=== PATIENT | female | born 1940 | race African-American/Black ===

== ENCOUNTER 2017-10-25 12:01 | Emergency (ER) | payer BC | END 2017-10-25 14:29 | disposition home or self-care (01) | LOC: ER 14:29 | DX: T82.898A Other specified complication of vascular prosthetic devices, implants and grafts, initial encounter (principal); R60.0 Localized edema; I12.0 Hypertensive chronic kidney disease with stage 5 chronic kidney disease or end stage renal disease; E11.22 Type 2 diabetes mellitus with diabetic chronic kidney disease; N18.6 End stage renal disease; Z99.2 Dependence on renal dialysis; Z86.73 Personal history of transient ischemic attack (TIA), and cerebral infarction without residual deficits; Z91.041 Radiographic dye allergy status; Y84.1 Kidney dialysis as the cause of abnormal reaction of the patient, or of later complication, without mention of misadventure at the time of the procedure; Y92.89 Other specified places as the place of occurrence of the external cause | CPT/HCPCS: 93971; 99284-25 ==

== ENCOUNTER 2020-11-01 14:43 | Emergency (ER) | payer BC ==
[~2020-11-01] VITALS: Ht 165.1 cm; Wt 61.2 kg
[~2020-11-01 14:43] MED LIST: ACET325T9 PO; ALLO100T PO; AMLO-186 PO; AMLO-187 PO; APIX2.5T PO; APIX5TAB PO; ASPI-482 PO; ATOR20TA58 PO; BENZ1LOZ48 PO; CETI10TA16 PO; CIPR250T30 PO; COLC0.6T45 PO; FOLI0.8T3 PO; HYDR-2761 PO; INSU100C SQ; INSU100I13 SQ; INSU100I17 SQ; INSU100I27 SQ; LOSA-73 PO; MAGN100T6 PO; MAGN400C PO; MAGN400T22 PO; OMEP40CA7 PO; OXYC1TAB7 PO; PANT40TA77 PO; SIMV5TAB14 PO; SITA1TAB7 PO; SITA50TA PO; TIZA4TAB2 PO; TRAZ-118 PO; VALS1TAB23 PO; VALS1TAB33; VALS1TAB33 PO; [UNRECOGNIZED DRUG - REMARK]
--- NOTE | 2020-11-01 15:00 | ED.ADGEN ---
Past Medical History Past Medical History: CVA, Diabetes-Type II, Hypertension, Renal Failure, Stroke, Other Additional Past Medical Histor: CRI with Cr 1.6 (August 2014) Past Surgical History: Hysterectomy, Other Additional Past Surgical Histo: TOE, DIALYSIS SHUNT RIGHT CHEST, AND LEFT UPPER ARM. Smoking Status: Never Smoker Alcohol Use: None Drug Use: None General Adult EDM: Chief Complaint: NEAR SYNCOPE HPI: HPI: Patient is a 80-year-old female who arrives via EMS after experiencing a near syncopal episode after completing dialysis. Patient dialyzes every Friday, Friday and Friday and has had repetitive spells of feeling as if she might pass out at the conclusion of dialysis. Patient reports when she is at rest she has no symptoms. She denies any history of chest pain. Additionally there are not any changes in her blood pressure that accompany her. She further denies having missed any appointments or neurological change otherwise. She is awake, alert and nontoxic-appearing. Review of Systems: Review of Systems: Constitutional: Denies fever or chills. [] Eyes: Denies change in visual acuity. [] HENT: Denies nasal congestion or sore throat. [] Respiratory: Denies cough or shortness of breath. [] Cardiovascular: Denies chest pain or edema. [] GI: Denies abdominal pain, nausea, vomiting, bloody stools or diarrhea. [] : Denies dysuria. [] Musculoskeletal: Denies back pain or joint pain. [] Integument: Denies rash. [] Neurologic: Reports being lightheaded/near syncopal. Denies headache, focal weakness or sensory changes. [] Endocrine: Denies polyuria or polydipsia. [] Lymphatic: Denies swollen glands. [] Psychiatric: Denies depression or anxiety. [] Allergies: Allergies: Allergies Coded Allergies Type Severity Reaction Last Updated Verified iodine Allergy Intermediate FLUSHING 09/17/17 Yes Physical Exam: PE: Constitutional: Well developed, well nourished, no acute distress, non-toxic appearance. [] HENT: Normocephalic, atraumatic, bilateral external ears normal, oropharynx moist, no oral exudates, nose normal. [] Eyes: PERRLA, EOMI, conjunctiva normal, no discharge. [] Neck: Normal range of motion, no tenderness, supple, no stridor. [] Cardiovascular:Heart rate regular rhythm, no murmur [] Lungs & Thorax: Bilateral breath sounds clear to auscultation [] Abdomen: Bowel sounds normal, soft, no tenderness, no masses, no pulsatile masses. [] Skin: Warm, dry, no erythema, no rash. [] Back: No tenderness, no CVA tenderness. [] Extremities: No tenderness, no cyanosis, no clubbing, ROM intact, no edema. [] Neurologic: Alert and oriented X 3, normal motor function, normal sensory function, no focal deficits noted. [] Psychologic: Affect normal, judgement normal, mood normal. [] Current Patient Data: Labs: Laboratory Tests Test 11/01/20 15:14 White Blood Count 5.6 x10^3/uL (4.0-11.0) Red Blood Count 3.54 x10^6/uL (3.50-5.40) Hemoglobin 11.1 g/dL (12.0-15.5) L Hematocrit 32.8 % (36.0-47.0) L Mean Corpuscular Volume 93 fL (79-100) Mean Corpuscular Hemoglobin 31 pg (25-35) Mean Corpuscular Hemoglobin Concent 34 g/dL (31-37) Red Cell Distribution Width 13.9 % (11.5-14.5) Platelet Count 278 x10^3/uL (140-400) Neutrophils (%) (Auto) 66 % (31-73) Lymphocytes (%) (Auto) 22 % (24-48) L Monocytes (%) (Auto) 8 % (0-9) Eosinophils (%) (Auto) 3 % (0-3) Basophils (%) (Auto) 0 % (0-3) Neutrophils # (Auto) 3.7 x10^3/uL (1.8-7.7) Lymphocytes # (Auto) 1.2 x10^3/uL (1.0-4.8) Monocytes # (Auto) 0.5 x10^3/uL (0.0-1.1) Eosinophils # (Auto) 0.2 x10^3/uL (0.0-0.7) Basophils # (Auto) 0.0 x10^3/uL (0.0-0.2) Sodium Level 140 mmol/L (136-145) Potassium Level 3.9 mmol/L (3.5-5.1) Chloride Level 95 mmol/L (98-107) L Carbon Dioxide Level 37 mmol/L (21-32) H Anion Gap 8 (6-14) Blood Urea Nitrogen 13 mg/dL (7-20) Creatinine 4.2 mg/dL (0.6-1.0) H Estimated GFR (Cockcroft-Gault) 12.4 BUN/Creatinine Ratio 3 (6-20) L Glucose Level 157 mg/dL (70-99) H Calcium Level 8.9 mg/dL (8.5-10.1) Total Bilirubin 0.5 mg/dL (0.2-1.0) Aspartate Amino Transferase (AST) 19 U/L (15-37) Alanine Aminotransferase (ALT) 17 U/L (14-59) Alkaline Phosphatase 92 U/L (46-116) Troponin I Quantitative < 0.017 ng/mL (0.000-0.055) Total Protein 8.7 g/dL (6.4-8.2) H Albumin 4.2 g/dL (3.4-5.0) Albumin/Globulin Ratio 0.9 (1.0-1.7) L Laboratory Tests 11/01/20 15:14 Laboratory Tests 11/01/20 15:14 Vital Signs: Vital Signs Date Time Temp Pulse Resp B/P (MAP) Pulse Ox O2 Delivery O2 Flow Rate FiO2 11/01/20 14:43 98.4 67 14 138/65 (89) 96 Room Air 98.4 EKG: EKG: [] EKG was obtained at 1441 hrs. reveals a normal sinus rhythm with a ventricular rate of 66 bpm. There is left axis deviation present without acute ST/T wave changes to denote ischemia. Heart Score: C/O Chest Pain: No Risk Factors: Risk Factors: DM, Current or recent (<one month) smoker, HTN, HLP, family history of CAD, obesity. Risk Scores: Score 0 - 3: 2.5% MACE over next 6 weeks - Discharge Home Score 4 - 6: 20.3% MACE over next 6 weeks - Admit for Clinical Observation Score 7 - 10: 72.7% MACE over next 6 weeks - Early Invasive Strategies Radiology/Procedures: Radiology/Procedures: [] Impression: [facility] [address] [place] [address] IMAGING REPORT Signed PATIENT: CORTNEY WILLIAMSON ACCOUNT: [id number] : 1940 LOCATION: ER AGE: 80 SEX: F EXAM STATUS: PRE ER ORD. PHYSICIAN: MICHELL HENAO DO REASON: Near syncope PROCEDURE: PORTABLE CHEST 1V EXAM: XR CHEST 1V 11/01/2020 3:00 PM CLINICAL INDICATION: Near syncope COMPARISON: Chest radiograph 10/23/2020 TECHNIQUE: AP upright view of the chest FINDINGS: The heart and mediastinum are normal. Lungs are adequately expanded. A few linear opacities in the left lung base are likely atelectasis. No consolidation, pleural effusion, or pneumothorax. No acute osseous abnormality. There is degenerative joint disease of the acromioclavicular joints. An electronic device projects over the left chest wall. IMPRESSION: No acute cardiopulmonary abnormality. Electronically signed by: Ariana Moore MD (11/01/2020 3:14 PM) [id number] DICTATED and SIGNED BY: ARIANA MOORE MD DATE: 11/01/20 [id number] Course & Med Decision Making: Course & Med Decision Making Pertinent Labs and Imaging studies reviewed. (See chart for details) The patient remains awake, alert and in no acute distress. Patient reports that she is feeling fine now and would like to leave. Given that this is happened several times following dialysis I do believe the patient is safe for discharge. The patient has not had chest pain at any time. I have advised that she return with any chest pain or any new syncopal symptoms. I have also asked that she return with any change in the character of her lightheaded sensation. The patient understands and has agreed to do so. She is nontoxic-appearing and resting comfortably. She is stable for discharge. Dragon Disclaimer: Dragon Disclaimer: This electronic medical record was generated, in whole or in part, using a voice recognition dictation system. Departure Departure Impression: Primary Impression: Orthostatic syncope Additional Impression: ESRD on dialysis Disposition: HOME / SELF CARE / HOMELESS Condition: STABLE Referrals: PAWAN ANGULO MD (PCP) Patient Instructions: Dialysis, Care After, Near-Syncope, Orthostatic Hypotension Problem Qualifiers MICHELL HENAO DO Nov 01, 2020 15:00
--- NOTE | 2020-11-01 15:16 | RAD ---
EXAM: XR CHEST 1V 11/01/2020 3:00 PM CLINICAL INDICATION: Near syncope COMPARISON: Chest radiograph 10/23/2020 TECHNIQUE: AP upright view of the chest FINDINGS: The heart and mediastinum are normal. Lungs are adequately expanded. A few linear opacitie s in the left lung base are likely atelectasis. No consolidation, pleural effusion, or pneumothorax. No acute osseous abnormality. There is degenerative joint disease of the acromioclavicular joints. An electronic device projects over the left chest wall. IMPRESSION: No acute cardiopulmonary abnormality. Electronically signed by: Ariana Moore MD (11/01/2020 3:14 PM) [id number]
[2020-11-01 15:27] LABS: BASO % 0 % (0-3); EOS # 0.2 x10^3/uL (0.0-0.7); EOS % 3 % (0-3); HEMATOCRIT 32.8 % (36.0-47.0); HEMOGLOBIN 11.1 g/dL (12.0-15.5); LYMPH # 1.2 x10^3/uL (1.0-4.8); LYMPH % 22 % (24-48); MEAN CORPUSCULAR HEMOGLOBIN 31 pg (25-35); MEAN CORPUSCULAR HGB CONC 34 g/dL (31-37); MEAN CORPUSCULAR VOLUME 93 fL (79-100); MONO # 0.5 x10^3/uL (0.0-1.1); MONO % 8 % (0-9); NEUT # 3.7 x10^3/uL (1.8-7.7); NEUT % 66 % (31-73); PLATELET COUNT 278 x10^3/uL (140-400); RED BLOOD COUNT 3.54 x10^6/uL (3.50-5.40); RED CELL DISTRIBUTION WIDTH 13.9 % (11.5-14.5); WHITE BLOOD COUNT 5.6 x10^3/uL (4.0-11.0)
[2020-11-01 15:36] LABS: CALCIUM 8.9 mg/dL (8.5-10.1); CREATININE 4.2 mg/dL (0.6-1.0); GFR 12.4; POTASSIUM 3.9 mmol/L (3.5-5.1)
[2020-11-01 15:41] LABS: ALBUMIN 4.2 g/dL (3.4-5.0); ALBUMIN/GLOBULIN RATIO 0.9 (1.0-1.7); TOTAL BILIRUBIN 0.5 mg/dL (0.2-1.0); TOTAL PROTEIN 8.7 g/dL (6.4-8.2)
[2020-11-01 17:15] VITALS: BP 137/64
--- NOTE | 2020-11-01 18:09 | EKG ---
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
== END 2020-11-01 17:40 | disposition home or self-care (01) ==
LOC: ER 14:43
DX: R55 Syncope and collapse (principal); E11.22 Type 2 diabetes mellitus with diabetic chronic kidney disease; I12.0 Hypertensive chronic kidney disease with stage 5 chronic kidney disease or end stage renal disease; N18.6 End stage renal disease; Z99.2 Dependence on renal dialysis; Z86.73 Personal history of transient ischemic attack (TIA), and cerebral infarction without residual deficits; Z88.8 Allergy status to other drugs, medicaments and biological substances; Z90.710 Acquired absence of both cervix and uterus
CPT/HCPCS: 36415; 71045; 80053; 84484; 85025; 93005; 99285-25

== ENCOUNTER 2021-04-04 17:38 | Emergency (ER) | payer BC ==
[~2021-04-04] VITALS: Ht 165.1 cm; Wt 80.0 kg
[~2021-04-04 17:38] MED LIST changes: +TIZA-75 PO; -TIZA4TAB2 PO
[2021-04-04] MEDS ORDERED: METOCLOPRAMIDE HCL 10 MG/2 ML VIAL. IVP ONE (18:00)
--- NOTE | 2021-04-04 18:05 | PHYS DOC ---
Past Medical History Past Medical History: CVA, Diabetes-Type II, Hypertension, Renal Failure, Stroke, Other Additional Past Medical Histor: CRI with Cr 1.6 (August 2014) Past Surgical History: Hysterectomy, Other Additional Past Surgical Histo: TOE, DIALYSIS SHUNT RIGHT CHEST, AND LEFT UPPER ARM. Smoking Status: Never Smoker Alcohol Use: None Drug Use: None General Adult EDM: Chief Complaint: DIALYSIS PROBLEM HPI: HPI: Patient is a 81 year old female with a history of CVA, diabetes type 2, hypertension, end-stage kidney disease on dialysis Friday last dialyzed today at 1330 who presents the ED today complaining of generalized weakness, mild epigastric abdominal pain, nausea and vomiting, symptoms began at 4:30 PM today. Patient denies any diarrhea. Denies any fever. She states she was seen by a doctor in this hospital system as an outpatient on Friday this week and the doctor was supposed to write her medicine for her stomach. She does not remember the name of the doctor. Patient denies anything specifically exacerbating or relieving her symptoms. Review of Systems: Review of Systems: Constitutional: Reports generalized weakness. Denies fever or chills. [] Eyes: Denies change in visual acuity. [] HENT: Denies nasal congestion or sore throat. [] Respiratory: Denies cough or shortness of breath. [] Cardiovascular: Denies chest pain or edema. [] GI: Reports epigastric abdominal pain with nausea and vomiting, denies bloody stools or diarrhea. [] : Denies dysuria. [] Musculoskeletal: Denies back pain or joint pain. [] Integument: Denies rash. [] Neurologic: Denies headache, focal weakness or sensory changes. [] Psychiatric: Denies depression or anxiety. [] Heart Score: C/O Chest Pain: N/A Risk Factors: Risk Factors: DM, Current or recent (<one month) smoker, HTN, HLP, family history of CAD, obesity. Risk Scores: Score 0 - 3: 2.5% MACE over next 6 weeks - Discharge Home Score 4 - 6: 20.3% MACE over next 6 weeks - Admit for Clinical Observation Score 7 - 10: 72.7% MACE over next 6 weeks - Early Invasive Strategies Current Medications: Current Medications Medications (Trade) Dose Ordered Sig/Jacqueline Start Time Stop Time Status Last Admin Dose Admin Metoclopramide HCl (Reglan Vial) 10 mg 1X ONCE 04/04/21 18:00 04/04/21 18:01 UNV Allergies: Allergies: Allergies Coded Allergies Type Severity Reaction Last Updated Verified iodine Allergy Intermediate FLUSHING 09/17/17 Yes Physical Exam: PE: Constitutional: Well developed, well nourished, no acute distress, non-toxic appearance. [] HENT: Normocephalic, atraumatic, bilateral external ears normal, oropharynx moist, no oral exudates, nose normal. [] Eyes: PERRLA, EOMI, conjunctiva normal, no discharge. [] Neck: Normal range of motion, no tenderness, supple, no stridor. [] Cardiovascular:Heart rate regular rhythm, left upper extremity dialysis fistula Lungs & Thorax: Bilateral breath sounds clear to auscultation [] Abdomen: Bowel sounds normal, soft, no tenderness, no masses, no pulsatile masses. [] Skin: Warm, dry, no erythema, no rash. [] Back: No tenderness, no CVA tenderness. [] Extremities: No tenderness, no cyanosis, no clubbing, ROM intact, no edema. [] Neurologic: Appears sleepy and tired but alert and oriented X 3, normal motor function, normal sensory function, no focal deficits noted. [] Psychologic: Affect normal, judgement normal, mood normal. [] Current Patient Data: Labs: Laboratory Tests Test 04/04/21 17:54 Glucose (Fingerstick) 164 mg/dL (70-99) H EKG: EK interpreted by Dr. Brower sinus rhythm heart rate 74 no STEMI [] Radiology/Procedures: Radiology/Procedures: []PROCEDURE: ACUTE ABDOMEN SERIES EXAM: Frontal view of the chest, AP views of the abdomen in upright and supine positions. CLINICAL INDICATION: Reason: Epigastric pain / Spl. Instructions: / History: COMPARISON: None. FINDINGS and IMPRESSION: The heart is not enlarged. Mediastinal and hilar contours are normal. Aortic calcifications are seen. Patchy opacities peripheral left lower lung may represent atelectasis or developing consolidation. No pleural effusion or p neumothorax. No abnormal small or large bowel dilatation. Moderate colonic stool content. No abnormal soft tissue mass effect. No suspicious calcifications are seen. No free intraperitoneal gas. Electronically signed by: Connor Puentes MD (04/04/2021 7:25 PM) [facility] DICTATED and SIGNED BY: CONNOR PUENTES MD DATE: 04/04/21 [id number] 0 Course & Med Decision Making: Course & Med Decision Making Pertinent Labs and Imaging studies reviewed. (See chart for details) This is a 81-year-old female patient presented to the ED today complaining of generalized weakness, nausea vomiting and epigastric abdominal pain that began at 4:30 PM. CBC CMP EKG with no acute findings, acute abdominal series noted for moderate constipation. Patient was given mag citrate in the ED, was also given Reglan. Educated patient about constipation, prevention and management. F/u with PCP in one week Osei Disclaimer: Dragmikael Disclaimer: This electronic medical record was generated, in whole or in part, using a voice recognition dictation system. Departure Departure Impression: Primary Impression: Constipation Qualified Codes: K59.00 - Constipation, unspecified Additional Impression: ESRD on dialysis Disposition: HOME / SELF CARE / HOMELESS Condition: STABLE Referrals: PAWAN ANGULO MD (PCP) Follow-up in the course of this week Patient Instructions: Constipation, Adult, [id number] Additional Instructions: You were evaluated in the emergency room and noted to be constipated. Please increase your dietary fiber intake. Please take MiraLAX for the next 3 days. Ensure you drink the magnesium citrate provided. Also take a stool softener. Scripts Ondansetron (ONDANSETRON ODT) 4 Mg Tab.rapdis 1 TAB PO PRN Q6-8HRS, #16 TAB Prov: SIDDHARTH CHAUDHARY APRN 04/04/21 SIDDHARTH CHAUDHARY APRN Apr 04, 2021 18:05
[2021-04-04 18:15] LABS: BASO % 0 % (0-3); EOS # 0.1 x10^3/uL (0.0-0.7); EOS % 2 % (0-3); HEMATOCRIT 31.5 % (36.0-47.0); HEMOGLOBIN 10.9 g/dL (12.0-15.5); LYMPH # 0.9 x10^3/uL (1.0-4.8); LYMPH % 13 % (24-48); MEAN CORPUSCULAR HEMOGLOBIN 32 pg (25-35); MEAN CORPUSCULAR HGB CONC 35 g/dL (31-37); MEAN CORPUSCULAR VOLUME 93 fL (79-100); MONO # 0.5 x10^3/uL (0.0-1.1); MONO % 7 % (0-9); NEUT # 5.5 x10^3/uL (1.8-7.7); NEUT % 77 % (31-73); PLATELET COUNT 281 x10^3/uL (140-400); RED BLOOD COUNT 3.39 x10^6/uL (3.50-5.40); RED CELL DISTRIBUTION WIDTH 14.2 % (11.5-14.5); WHITE BLOOD COUNT 7.2 x10^3/uL (4.0-11.0)
[2021-04-04 18:34] LABS: CALCIUM 8.7 mg/dL (8.5-10.1); CREATININE 4.2 mg/dL (0.6-1.0); GFR 12.4; POTASSIUM 4.2 mmol/L (3.5-5.1)
[2021-04-04 18:40] LABS: ALBUMIN 3.9 g/dL (3.4-5.0); ALBUMIN/GLOBULIN RATIO 0.9 (1.0-1.7); MAGNESIUM 1.8 mg/dL (1.8-2.4); TOTAL BILIRUBIN 1.1 mg/dL (0.2-1.0); TOTAL PROTEIN 8.3 g/dL (6.4-8.2)
--- NOTE | 2021-04-04 19:28 | RAD ---
EXAM: Frontal view of the chest, AP views of the abdomen in upright and supine positions. CLINICAL INDICATION: Reason: Epigastric pain / Spl. Instructions: / History: COMPARISON: None. FINDINGS and IMPRESSION: The heart is not enlarged. Mediastinal and hilar contours are normal. Aortic calcifications are seen. Patchy opacities peripheral left lower lung may represent atelectasis or developing consolidation. N o pleural effusion or pneumothorax. No abnormal small or large bowel dilatation. Moderate colonic stool content. No abnormal soft tissu e mass effect. No suspicious calcifications are seen. No free intraperitoneal gas. Electronically signed by: Connor Puentes MD (04/04/2021 7:25 PM) CAT
--- NOTE | 2021-04-04 19:31 | EKG ---
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
[2021-04-04] MEDS ORDERED: cloNIDine HCL 0.1 MG TABLET PO ONE (19:45)
[2021-04-04] MEDS ORDERED: MAGNESIUM CITRATE 296 ML SOLUTION. PO ONE (19:45)
[2021-04-04 20:00] VITALS: BP 209/98
[2021-04-04] MEDS ORDERED: ONDA4TAB12 PO (20:22)
== END 2021-04-04 20:31 | disposition home or self-care (01) ==
LOC: ER 17:38
DX: I12.0 Hypertensive chronic kidney disease with stage 5 chronic kidney disease or end stage renal disease (principal); E11.22 Type 2 diabetes mellitus with diabetic chronic kidney disease; N18.6 End stage renal disease; K59.00 Constipation, unspecified; Z99.2 Dependence on renal dialysis; Z86.73 Personal history of transient ischemic attack (TIA), and cerebral infarction without residual deficits; Z90.710 Acquired absence of both cervix and uterus; Z88.8 Allergy status to other drugs, medicaments and biological substances
CPT/HCPCS: 36415; 74022; 80053; 82962; 83735; 83880; 84484; 85025; 93005; 96374; 99285; J2765